=== PATIENT | female | born 2000 | race Caucasian/White ===

== ENCOUNTER 2019-02-08 07:45 | Emergency (ER) | payer OTHER ==
[~2019-02-08] VITALS: Ht 152.4 cm; Wt 54.4 kg
[~2019-02-08 07:45] MED LIST: ACETAMINOPHEN-1 EAC1 PO; BACTRIM DS TAB1 EACH PO; BIRTH CONTROL; IBUPROFEN 800800 M1 PO; PHENERGAN 25 MG25 M1 PO; VALTREX1000 MG PO; ZOFRAN ODT4 MG PO
[2019-02-08 08:17] VITALS: BP 122/57
== END 2019-02-08 08:17 | disposition home or self-care (01) ==
LOC: M.ERS 07:45
DX: N94.6 Dysmenorrhea, unspecified (principal)